=== PATIENT | female | born 1965 | race African-American/Black ===

== ENCOUNTER 2017-06-06 21:10 | Emergency (ER) | payer SELFPAY ==
[2017-06-06] MEDS ORDERED: Methocarbamol 1 GM in Sodium Chloride 0.9% 250 ML 250 ML IVPB SCH (22:30)
== END 2017-06-07 01:22 | disposition home or self-care (01) ==
LOC: ERS 21:10
DX: M54.40 Lumbago with sciatica, unspecified side (principal); E11.9 Type 2 diabetes mellitus without complications; E78.5 Hyperlipidemia, unspecified; F17.210 Nicotine dependence, cigarettes, uncomplicated; I10 Essential (primary) hypertension
CPT/HCPCS: 96365; J2800; J7050

== ENCOUNTER 2017-08-02 14:31 | Inpatient (IN) | payer SELFPAY ==
[2017-08-02] MEDS ORDERED: methylPREDNISolone Sod Succ/PF 125 MG/2 ML VIAL ONE (16:21)
[2017-08-02] MEDS ORDERED: Sterile Water 0 ML ONE (16:22)
[2017-08-02] MEDS ORDERED: Water For Inject, Bacteriostat 30 ML ONE (16:23)
[2017-08-02] MEDS ORDERED: Albuterol Sulfate 2.5 mg/3 ml Neb NEB PRN (17:54)
[2017-08-02] MEDS ORDERED: HYDROcodone/Acetaminophen 10/325 mg Tablet PO PRN (17:54)
[2017-08-02] MEDS ORDERED: Enoxaparin Sodium 40 MG/0.4 ML SYRINGE SC SCH (17:54)
[2017-08-02] MEDS ORDERED: Dextrose 5% in Water 1,000 ML IV PRN (17:54)
[2017-08-02] MEDS ORDERED: HYDROcodone/Acetaminophen 5/325 mg Tablet PO PRN (17:54)
[2017-08-02] MEDS ORDERED: Dextrose 50% Abboject 50 ML SYRINGE SLOW IVP PRN (17:54)
[2017-08-02] MEDS ORDERED: Ondansetron ODT 4 MG TAB PO PRN (17:54)
[2017-08-02] MEDS: Sodium Chloride 0.9% 1,000 ML IV SCH (19:32)
[2017-08-02] MEDS: Oseltamivir 75 MG CAP PO SCH (20:57)
[2017-08-02] MEDS: Acetaminophen 325 MG TAB PO PRN (20:58)
[2017-08-02] MEDS: Famotidine 20 MG TAB PO SCH (20:58)
[2017-08-02] MEDS: Nicotine 7 MG PATCH TD SCH ×2 (20:59→22:33)
[2017-08-02] MEDS: Insulin Regular 300 UNITS/3 ML VIAL SC PRN (22:27)
[2017-08-02 22:46] VITALS: BMI 45.9
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
[2017-08-03] MEDS: Sodium Chloride 0.9% 1,000 ML IV SCH ×2 (05:30→19:30)
[2017-08-03 05:49] LABS: #Lymphocytes 0.9 thou/uL (1.20-3.40); #Monocytes 0.2 thou/uL (0.11-0.59); %Basophils 0.3 % (0.0-1.0); %Eosinophils 0.2 % (0.0-10.0); %Lymphocytes 17.2 % (21.0-51.0); %Monocytes 4.6 % (0.0-10.0); Hematocrit 43.3 % (36.0-47.0); Mean Platelet Volume 8.2 fL (7.4-10.4); Red Blood Cell (RBC) Count 4.73 mill/uL (4.20-5.40); White Blood Cell (WBC) Count 5.1 thou/uL (4.8-10.8)
[2017-08-03 05:52] LABS: Hemoglobin A1c 10.4 % (4.0-6.0)
[2017-08-03 06:11] LABS: Anion Gap 14 mmol/L (10-20); BUN (Urea Nitrogen) 13 mg/dL (9.8-20.1); Calc. Creatinine Clearance 134 mL/min (70-130); Calcium 8.4 mg/dL (7.8-10.44); Carbon Dioxide 23 mmol/L (22-29); Chloride 104 mmol/L (98-107); Estimated GFR-MDRD 79
[2017-08-03] MEDS: Insulin Regular 300 UNITS/3 ML VIAL SC PRN ×4 (06:26→20:46)
[2017-08-03] MEDS ORDERED: Mag-Al 1200 mg/1200 mg/30 ML UDCUP PO PRN (08:05)
[2017-08-03] MEDS ORDERED: Chloraseptic Spray 180 ml Bottle PO PRN (08:05)
[2017-08-03] MEDS ORDERED: Senokot 8.6 MG TAB PO PRN (08:05)
[2017-08-03] MEDS ORDERED: Zolpidem Tartrate 5 MG TAB PO PRN (08:05)
[2017-08-03] MEDS ORDERED: Diabetic Tussin 200 MG/10 ML UDCUP PO PRN (08:05)
[2017-08-03] MEDS ORDERED: Artificial Tears 18 DROP/0.9 ML EA EYE PRN (08:05)
[2017-08-03] MEDS ORDERED: Benzonatate 100 MG CAP PO PRN (08:05)
[2017-08-03] MEDS ORDERED: hydrALAZINE 20 MG/ML VIAL SLOW IVP PRN (08:05)
[2017-08-03] MEDS ORDERED: Sodium Chloride 0.65% Nasal 44 ML BOT EA NARE PRN (08:05)
[2017-08-03] MEDS ORDERED: Ondansetron HCl/PF 4 MG/2 ML Vial IVP PRN (08:05)
[2017-08-03] MEDS ORDERED: Eucerin (Mineral Oil/Petrolatum,White) 30 gm Jar TOP PRN (08:05)
[2017-08-03] MEDS ORDERED: Loperamide HCl 2 MG CAP PO PRN (08:05)
[2017-08-03] MEDS ORDERED: Loratadine 10 MG TAB PO PRN (08:05)
[2017-08-03] MEDS ORDERED: Milk Of Magnesia 30 ML UDCUP PO PRN (08:05)
[2017-08-03] MEDS: Oseltamivir 75 MG CAP PO SCH ×2 (08:38→20:45)
[2017-08-03] MEDS: Famotidine 20 MG TAB PO SCH ×2 (08:38→20:45)
[2017-08-03] MEDS: Enoxaparin Sodium 40 MG/0.4 ML SYRINGE SC SCH (08:39)
[2017-08-03] MEDS ORDERED: FLU VACC QS2017-18 36 mo. & older 0.5 ML SYRINGE IM ONE (09:00)
--- NOTE | 2017-08-03 12:18 | PDOC.PN ---
- Subjective Encounter Start Date: 08/03/17 Encounter Start Time: 10:00 -: old records requested/rev still feels weak, ALVES, no fever Patient seen and examined. No overnight events - Objective Resuscitation Status: Resuscitation Status FULL:Full Resuscitation MAR Reviewed: Yes Vital Signs & Weight: Vital Signs (12 hours) Temp Pulse Resp BP BP Pulse Ox 08/03/17 11:06 80 16 08/03/17 08:00 97.8 F 86 22 H 08/03/17 07:43 97.8 F 86 22 H 155/92 H 95 08/03/17 06:53 97 08/03/17 06:52 86 16 08/03/17 05:44 97.8 F 82 20 106/73 95 08/03/17 02:53 93 L 08/03/17 00:44 97.9 F 74 20 116/68 93 L Weight Weight 259 lb 6.4 oz Result Diagrams: 08/03/17 05:35 08/03/17 05:35 Additional Labs: Accuchecks 08/02/17 21:56 POC Glucose 534 H Phys Exam - Physical Examination Constitutional: NAD HEENT: PERRLA, moist MMs, sclera anicteric Neck: no JVD, supple Respiratory: no rales, wheezing present Cardiovascular: RRR, no significant murmur, no rub Gastrointestinal: soft, non-tender, no distention, positive bowel sounds obesity+ Musculoskeletal: no edema, pulses present Neurological: non-focal, normal sensation, moves all 4 limbs Psychiatric: normal affect, A&O x 3 Skin: no rash, normal turgor Dx/Plan (1) COPD exacerbation Code(s): J44.1 - CHRONIC OBSTRUCTIVE PULMONARY DISEASE W (ACUTE) EXACERBATION Status: Acute (2) Influenza A Code(s): J10.1 - FLU DUE TO OTH IDENT INFLUENZA VIRUS W OTH RESP MANIFEST Status: Acute (3) Diabetes type 2, controlled Code(s): E11.9 - TYPE 2 DIABETES MELLITUS WITHOUT COMPLICATIONS Status: Chronic (4) Dyslipidemia Code(s): E78.5 - HYPERLIPIDEMIA, UNSPECIFIED Status: Chronic (5) Hypertension Code(s): I10 - ESSENTIAL (PRIMARY) HYPERTENSION Status: Chronic (6) Morbid obesity with BMI of 45.0-49.9, adult Code(s): E66.01 - MORBID (SEVERE) OBESITY DUE TO EXCESS CALORIES; Z68.42 - BODY MASS INDEX (BMI) 45.0-49.9, ADULT Status: Chronic (7) Tobacco abuse Code(s): Z72.0 - TOBACCO USE Status: Chronic - Plan cont current plan of care, continue antibiotics, respiratory therapy * continue tamiflu * continue respiratory therapy * add doxycycline * medication reviewed as below * symptomatic treatment. * continue IVF * continue IV solumedrol * counselled to avoid smoking Review of Systems - Review of Systems Constitutional: Weakness. negative: Fever, Chills, Sweats, Malaise, Other Respiratory: Cough, Shortness of Breath, SOB with Excertion. negative: Dry, Hemoptysis, Pleuritic Pain, Sputum, Wheezing Cardiovascular: negative: Chest Pain, Palpitations, Orthopnea, Paroxysmal Noc. Dyspnea, Edema, Light Headedness, Other Gastrointestinal: negative: Nausea, Vomiting, Abdominal Pain, Diarrhea, Constipation, Melena, Hematochezia, Other Genitourinary: negative: Dysuria, Frequency, Incontinence, Hematuria, Retention , Other Musculoskeletal: negative: Neck Pain, Shoulder Pain, Arm Pain, Back Pain, Hand Pain, Leg Pain, Foot Pain, Other Skin: negative: Rash, Lesions, Jackson, Bruising, Other - Medications/Allergies Allergies/Adverse Reactions: Allergies Allergy/AdvReac Type Severity Reaction Status Date / Time codeine Allergy Verified 08/02/17 21:54 Medications: Current Medications Acetaminophen (Tylenol) 650 mg PO Q4H PRN PRN Reason: Headache/Fever or Pain Last Admin: 08/02/17 20:58 Dose: 650 mg Hydrocodone Bitart/Acetaminophen ([employer] 10/325) 1 tab PO Q4H PRN PRN Reason: Severe Pain (7-10) Hydrocodone Bitart/Acetaminophen ([employer] 5/325) 1 tab PO Q4H PRN PRN Reason: Moderate Pain (4-6) Al Hydroxide/Mg Hydroxide (Maalox) 15 ml PO Q4H PRN PRN Reason: Heartburn or Indigestion Albuterol Sulfate (Ventolin) 2.5 mg NEB Q2H PRN PRN Reason: Wheezing Albuterol/Ipratropium (Duoneb) 3 ml NEB [id number] Last Admin: 08/03/17 11:06 Dose: 3 ml Artificial Tears (Tears Naturale) 0 drop EA EYE PRN PRN PRN Reason: Dry Eyes Benzonatate (Tessalon) 100 mg PO Q4H PRN PRN Reason: Cough Dextrose/Water (Dextrose 50%) 25 gm SLOW IVP PRN PRN PRN Reason: Hypoglycemia Enoxaparin Sodium (Lovenox) 40 mg SC 0900 [facility] Last Admin: 08/03/17 08:39 Dose: 40 mg Famotidine (Pepcid) 20 mg PO BID [facility] Last Admin: 08/03/17 08:38 Dose: 20 mg Glucagon (Glucagon) 1 mg IM PRN PRN PRN Reason: Hypoglycemia Guaifenesin (Robitussin Sf) 200 mg PO Q4H PRN PRN Reason: Cough Hydralazine HCl (Apresoline) 10 mg SLOW IVP Q4H PRN PRN Reason: Systolic BP > 180 Dextrose/Water (D5w) 1,000 mls @ 0 mls/hr IV .Q0M PRN; As Directed PRN Reason: Hypoglycemia Sodium Chloride (Normal Saline 0.9%) 1,000 mls @ 75 mls/hr IV .[id number] [facility] Last Admin: 08/03/17 05:30 Dose: 1,000 mls Insulin Human Regular (Humulin R) 0 units SC .MODERATE SLIDING SC PRN PRN Reason: Moderate Correctional Scale Last Admin: 08/03/17 06:26 Dose: 10 unit Insulin Human Regular (Humulin R) 0 units SC .BEDTIME SLIDING SC PRN; Protocol PRN Reason: BEDTIME SLIDING SCALE Last Admin: 08/02/17 22:27 Dose: 5 unit Loperamide HCl (Imodium) 2 mg PO PRN PRN PRN Reason: Diarrhea/Loose Stools Loratadine (Claritin) 10 mg PO DAILYPRN PRN PRN Reason: Sinus Symptoms Magnesium Hydroxide (Milk Of Magnesium) 30 ml PO DAILYPRN PRN PRN Reason: Constipation Methylprednisolone Sodium Succinate (Solu-Medrol) 40 mg IVP Q6HR [facility] Last Admin: 08/03/17 06:25 Dose: 40 mg Mineral Oil/White Petrolatum (Eucerin Cream) 0 gm TOP BIDPRN PRN PRN Reason: Dry Skin Nicotine (Nicoderm Patch) 7 mg TD Q24HR [facility] Last Admin: 08/02/17 22:33 Dose: 7 mg Ondansetron HCl (Zofran Odt) 4 mg PO Q6H PRN PRN Reason: Nausea/Vomiting Ondansetron HCl (Zofran) 4 mg IVP Q6H PRN PRN Reason: Nausea/Vomiting Oseltamivir Phosphate (Tamiflu) 75 mg PO BID [facility] Stop: 08/07/17 09:01 Last Admin: 08/03/17 08:38 Dose: 75 mg Phenol (Chloraseptic [place] 180 Ml Bot) 0 ml PO PRN PRN PRN Reason: Sore Throat Senna (Senokot) 2 tab PO HSPRN PRN PRN Reason: Constipation Sodium Chloride ([place] Nasal [place] 0.65%) 0 ml EA NARE QIDPRN PRN PRN Reason: Nasal Congestion Sodium Chloride (Flush - Normal Saline) 10 ml IVF Q12HR [facility] Last Admin: 08/03/17 09:20 Dose: Not Given Sodium Chloride (Flush - Normal Saline) 10 ml IVF PRN PRN PRN Reason: Saline Flush Zolpidem Tartrate (Ambien) 5 mg PO HSPRN PRN PRN Reason: Insomnia
[2017-08-03] MEDS: Nicotine 7 MG PATCH TD SCH (17:22)
[2017-08-03] MEDS: Doxycycline 100 MG CAP PO SCH (20:45)
[2017-08-04] MEDS: Insulin Regular 300 UNITS/3 ML VIAL SC PRN (06:23)
[2017-08-04] MEDS: Sodium Chloride 0.9% 1,000 ML IV SCH ×2 (06:24→23:33)
[2017-08-04] MEDS: Doxycycline 100 MG CAP PO SCH ×2 (08:38→21:21)
[2017-08-04] MEDS: Lisinopril 5 MG TAB PO SCH (08:38)
[2017-08-04] MEDS: Enoxaparin Sodium 40 MG/0.4 ML SYRINGE SC SCH (08:39)
[2017-08-04] MEDS: Oseltamivir 75 MG CAP PO SCH ×2 (08:40→21:21)
[2017-08-04] MEDS: Famotidine 20 MG TAB PO SCH ×2 (08:40→21:21)
[2017-08-04] MEDS: metFORMIN 500 MG TAB PO SCH ×2 (08:40→17:11)
[2017-08-04] MEDS: glyBURIDE 5 MG TAB PO SCH ×2 (08:41→17:11)
[2017-08-04] MEDS: Acetaminophen 325 MG TAB PO PRN (08:41)
--- NOTE | 2017-08-04 12:50 | PDOC.PN ---
- Subjective Encounter Start Date: 08/04/17 Encounter Start Time: 09:40 pt has cough, her blood sugar are not controlled - Objective Resuscitation Status: Resuscitation Status FULL:Full Resuscitation MAR Reviewed: Yes Vital Signs & Weight: Vital Signs (12 hours) Temp Pulse Resp BP BP Pulse Ox 08/04/17 10:28 86 12 08/04/17 08:38 94 139/78 08/04/17 07:03 92 16 94 L 08/04/17 04:12 98.1 F 94 20 139/78 92 L 08/04/17 02:27 88 16 95 Weight Weight 259 lb 6.4 oz I&O: 08/03/17 08/04/17 08/05/17 06:59 06:59 06:59 Intake Total 2100 Output Total 3400 Balance -1300 Result Diagrams: 08/03/17 05:35 08/03/17 05:35 Additional Labs: Accuchecks 08/04/17 08/03/17 08/03/17 11:09 20:25 16:33 POC Glucose 143 H 510 H 472 H 08/03/17 12:08 POC Glucose 394 H Phys Exam - Physical Examination Constitutional: NAD HEENT: PERRLA, moist MMs, sclera anicteric Neck: no JVD, supple Respiratory: no wheezing, no rales, no rhonchi Cardiovascular: RRR, no significant murmur, no rub Gastrointestinal: soft, non-tender, no distention, positive bowel sounds Musculoskeletal: no edema, pulses present Neurological: non-focal, normal sensation Lymphatic: no nodes Psychiatric: normal affect, A&O x 3 Skin: no rash, normal turgor Dx/Plan (1) COPD exacerbation Code(s): J44.1 - CHRONIC OBSTRUCTIVE PULMONARY DISEASE W (ACUTE) EXACERBATION Status: Acute (2) Influenza A Code(s): J10.1 - FLU DUE TO OTH IDENT INFLUENZA VIRUS W OTH RESP MANIFEST Status: Acute (3) Diabetes type 2, controlled Code(s): E11.9 - TYPE 2 DIABETES MELLITUS WITHOUT COMPLICATIONS Status: Chronic (4) Dyslipidemia Code(s): E78.5 - HYPERLIPIDEMIA, UNSPECIFIED Status: Chronic (5) Hypertension Code(s): I10 - ESSENTIAL (PRIMARY) HYPERTENSION Status: Chronic (6) Morbid obesity with BMI of 45.0-49.9, adult Code(s): E66.01 - MORBID (SEVERE) OBESITY DUE TO EXCESS CALORIES; Z68.42 - BODY MASS INDEX (BMI) 45.0-49.9, ADULT Status: Chronic (7) Tobacco abuse Code(s): Z72.0 - TOBACCO USE Status: Chronic - Plan cont current plan of care, continue antibiotics * add glyburide * DC solumedrol * continue doxycycline * control blood sugar * expecting discharge tomorrow * medication reviewed as below * symptomatic treatment. Review of Systems - Review of Systems ENT: negative: Ear Pain, Ear Discharge, Nose Pain, Nose Discharge, Nose Congestion, Mouth Pain, Mouth Swelling, Throat Pain, Throat Swelling, Other Respiratory: Cough, Shortness of Breath. negative: Dry, Hemoptysis, SOB with Excertion, Pleuritic Pain, Sputum, Wheezing Cardiovascular: negative: Chest Pain, Palpitations, Orthopnea, Paroxysmal Noc. Dyspnea, Edema, Light Headedness, Other Gastrointestinal: negative: Nausea, Vomiting, Abdominal Pain, Diarrhea, Constipation, Melena, Hematochezia, Other Genitourinary: negative: Dysuria, Frequency, Incontinence, Hematuria, Retention , Other Musculoskeletal: negative: Neck Pain, Shoulder Pain, Arm Pain, Back Pain, Hand Pain, Leg Pain, Foot Pain, Other Skin: negative: Rash, Lesions, Jackson, Bruising, Other - Medications/Allergies Allergies/Adverse Reactions: Allergies Allergy/AdvReac Type Severity Reaction Status Date / Time codeine Allergy Verified 08/02/17 21:54 Medications: Current Medications Acetaminophen (Tylenol) 650 mg PO Q4H PRN PRN Reason: Headache/Fever or Pain Last Admin: 08/04/17 08:41 Dose: 650 mg Hydrocodone Bitart/Acetaminophen ([place] 10/325) 1 tab PO Q4H PRN PRN Reason: Severe Pain (7-10) Hydrocodone Bitart/Acetaminophen ([place] 5/325) 1 tab PO Q4H PRN PRN Reason: Moderate Pain (4-6) Al Hydroxide/Mg Hydroxide (Maalox) 15 ml PO Q4H PRN PRN Reason: Heartburn or Indigestion Albuterol Sulfate (Ventolin) 2.5 mg NEB Q2H PRN PRN Reason: Wheezing Albuterol/Ipratropium (Duoneb) 3 ml NEB [id number] Last Admin: 08/04/17 10:28 Dose: 3 ml Artificial Tears (Tears Naturale) 0 drop EA EYE PRN PRN PRN Reason: Dry Eyes Benzonatate (Tessalon) 100 mg PO Q4H PRN PRN Reason: Cough Dextrose/Water (Dextrose 50%) 25 gm SLOW IVP PRN PRN PRN Reason: Hypoglycemia Doxycycline Hyclate (Vibramycin) 100 mg PO BID [facility] Last Admin: 08/04/17 08:38 Dose: 100 mg Enoxaparin Sodium (Lovenox) 40 mg SC 0900 [facility] Last Admin: 08/04/17 08:39 Dose: 40 mg Famotidine (Pepcid) 20 mg PO BID [facility] Last Admin: 08/04/17 08:40 Dose: 20 mg Glucagon (Glucagon) 1 mg IM PRN PRN PRN Reason: Hypoglycemia Glyburide (Diabeta) 5 mg PO BID[facility] Last Admin: 08/04/17 08:41 Dose: 5 mg Guaifenesin (Robitussin Sf) 200 mg PO Q4H PRN PRN Reason: Cough Hydralazine HCl (Apresoline) 10 mg SLOW IVP Q4H PRN PRN Reason: Systolic BP > 180 Dextrose/Water (D5w) 1,000 mls @ 0 mls/hr IV .Q0M PRN; As Directed PRN Reason: Hypoglycemia Sodium Chloride (Normal Saline 0.9%) 1,000 mls @ 75 mls/hr IV .[id number] [facility] Last Admin: 08/04/17 06:24 Dose: 1,000 mls Insulin Human Regular (Humulin R) 0 units SC .MODERATE SLIDING SC PRN PRN Reason: Moderate Correctional Scale Last Admin: 08/04/17 06:23 Dose: 8 unit Insulin Human Regular (Humulin R) 0 units SC .BEDTIME SLIDING SC PRN; Protocol PRN Reason: BEDTIME SLIDING SCALE Last Admin: 08/03/17 20:46 Dose: 5 unit Lisinopril (Zestril) 5 mg PO DAILY [facility] Last Admin: 08/04/17 08:38 Dose: 5 mg Loperamide HCl (Imodium) 2 mg PO PRN PRN PRN Reason: Diarrhea/Loose Stools Loratadine (Claritin) 10 mg PO DAILYPRN PRN PRN Reason: Sinus Symptoms Magnesium Hydroxide (Milk Of Magnesium) 30 ml PO DAILYPRN PRN PRN Reason: Constipation Metformin HCl (Glucophage) 1,000 mg PO BID-[facility] Last Admin: 08/04/17 08:40 Dose: 1,000 mg Mineral Oil/White Petrolatum (Eucerin Cream) 0 gm TOP BIDPRN PRN PRN Reason: Dry Skin Nicotine (Nicoderm Patch) 7 mg TD Q24HR [facility] Last Admin: 08/03/17 17:22 Dose: 7 mg Ondansetron HCl (Zofran Odt) 4 mg PO Q6H PRN PRN Reason: Nausea/Vomiting Ondansetron HCl (Zofran) 4 mg IVP Q6H PRN PRN Reason: Nausea/Vomiting Oseltamivir Phosphate (Tamiflu) 75 mg PO BID [facility] Stop: 08/07/17 09:01 Last Admin: 08/04/17 08:40 Dose: 75 mg Phenol (Chloraseptic [place] 180 Ml Bot) 0 ml PO PRN PRN PRN Reason: Sore Throat Senna (Senokot) 2 tab PO HSPRN PRN PRN Reason: Constipation Sodium Chloride ([place] Nasal [place] 0.65%) 0 ml EA NARE QIDPRN PRN PRN Reason: Nasal Congestion Sodium Chloride (Flush - Normal Saline) 10 ml IVF Q12HR [facility] Last Admin: 08/04/17 08:42 Dose: Not Given Sodium Chloride (Flush - Normal Saline) 10 ml IVF PRN PRN PRN Reason: Saline Flush Zolpidem Tartrate (Ambien) 5 mg PO HSPRN PRN PRN Reason: Insomnia
[2017-08-04] MEDS: Nicotine 7 MG PATCH TD SCH (18:06)
[2017-08-05] MEDS: Lisinopril 5 MG TAB PO SCH (08:11)
[2017-08-05] MEDS: Famotidine 20 MG TAB PO SCH (08:11)
[2017-08-05] MEDS: metFORMIN 500 MG TAB PO SCH (08:12)
[2017-08-05] MEDS: Oseltamivir 75 MG CAP PO SCH (08:12)
[2017-08-05] MEDS: glyBURIDE 5 MG TAB PO SCH (08:13)
[2017-08-05] MEDS: Doxycycline 100 MG CAP PO SCH (08:13)
[2017-08-05 08:14] VITALS: BP 120/66
[2017-08-05] MEDS: Enoxaparin Sodium 40 MG/0.4 ML SYRINGE SC SCH (08:14)
[2017-08-05 08:26] VITALS: TEMP 97.4
[2017-08-05] MEDS ORDERED: predniSONE 20 MG TAB PO SCH (09:15)
[2017-08-05] MEDS: Sodium Chloride 0.9% 1,000 ML IV SCH (11:40)
--- NOTE | 2017-08-05 14:27 | DIS ---
DATE OF ADMISSION: 08/02/2017 DATE OF DISCHARGE: 08/05/2017 PRIMARY CARE PHYSICIAN: Dr. Latricia Guajardo. DISCHARGE DISPOSITION: Home. PRIMARY DISCHARGE DIAGNOSES: 1. Acute influenza A. 2. Chronic obstructive pulmonary disease/asthma exacerbation. 3. Labile diabetes control. SECONDARY DISCHARGE DIAGNOSES: 1. Morbid obesity with BMI of 46. 2. Tobacco abuse disorder. 3. Hypertension. 4. Dyslipidemia. PRIMARY PROCEDURE/OPERATION: None. RADIOLOGICAL INVESTIGATION: Chest x-ray on admission showed no acute cardiopulmonary process. SIGNIFICANT LABORATORY DATA: WBC 5.1, hemoglobin 13.6, platelets 244. Sodium 137, potassium 4.0, BU N 13, creatinine 0.90, calcium 8.4, hemoglobin A1c 10.4. Blood culture negative, influenza A positiv e. DISCHARGE MEDICATIONS: Doxycycline 100 mg p.o. b.i.d. for 7 days, Pepcid 20 mg p.o. b.i.d. for one m onth, glyburide 5 mg p.o. b.i.d., lisinopril 5 mg p.o. daily, metformin 1000 mg p.o. b.i.d., Dulera 2 puffs inhalation b.i.d., prednisone 20 mg p.o. b.i.d. for 5 days, Ventolin HFA 2 puffs q.6 hourly p. r.n. The patient is advised to use [id number] Mucinex and Robitussin cough syrup. CONTRAINDICATIONS: None. CODE STATUS: FULL CODE. INPATIENT CONSULTANTS: None. ALLERGIES: CODEINE. DISCHARGE PLAN: Post hospital, the patient is discharged with the above mentioned medications and e will schedule appointment with primary care physician in 1 week. HOSPITAL COURSE: A 51-year-old female with above-mentioned medical problem who was admitted by Dr. Annamaria Arredondo. Please see his H&P for further details. The patient was admitted on 08/02/2017. The pa tient was having flu-like illness with generalized body ache and headache. She was having fever as w ell as she was having increasing shortness of breath, cough productive of yellowish white sputum and she was significantly weak. The patient had a flu testing done in the emergency room and it was posi tive for influenza A. Patient was also having acute bronchitis/COPD exacerbation/asthma exacerbation . The patient has ongoing tobacco abuse disorder and we suspected predominantly chronic obstructive pulmonary disease exacerbation. Patient was admitted to medical floor and she was treated with IV st eroids, DuoNeb therapy and Dulera. With this therapy, the patient's diabetes was significantly got w orse and that is why we discontinued IV Solu-Medrol and we changed to inhaler therapy only. We added glyburide and metformin for her diabetes for better control. After that, her diabetes was well con trolled. We also continued empiric antibiotic therapy with doxycycline while in hospital. The patient education given about to avoid smoking as well as diet and diabetes control was discussed with her in detail on the day of discharge. PHYSICAL EXAMINAITON: The patient was seen and examined at bedside today. VITAL SIGNS: Currently, temperature 97.4, pulse 78, respiratory rate 18, blood pressure 120/66, weig ht 259 pounds. GENERAL: The patient is currently alert, awake, in no acute distress. HEAD: Normocephalic, atraumatic. LUNGS: Clear to auscultation without any rhonchi or rales. CARDIAC: S1, S2 regular without any murmur. ABDOMEN: Soft and benign without any tenderness. EXTREMITIES: No edema. NEUROLOGIC: Nonfocal examination. Overall, the patient is medically stable for discharge. Total time spent on discharge day 31 minutes.
== END 2017-08-05 12:17 | disposition home or self-care (01) | DRG 190 ==
LOC: ERS 14:31 → T4-A 17:52
PROVIDERS: ADMIT Internal Medicine Infectious Disease; ATTEND Internal Medicine Infectious Disease
DX: J44.0 Chronic obstructive pulmonary disease with (acute) lower respiratory infection (principal); J10.00 Influenza due to other identified influenza virus with unspecified type of pneumonia; Z68.42 Body mass index [BMI] 45.0-49.9, adult; J45.901 Unspecified asthma with (acute) exacerbation; E66.01 Morbid (severe) obesity due to excess calories; J44.1 Chronic obstructive pulmonary disease with (acute) exacerbation; J20.9 Acute bronchitis, unspecified; F17.210 Nicotine dependence, cigarettes, uncomplicated; I10 Essential (primary) hypertension; E78.5 Hyperlipidemia, unspecified
CPT/HCPCS: 36415; 36416; 80048; 83036; 85025; 90471; 90682; 90732; 94640; 96374; A4216; G0008; G0009; J1650; J1815; J2920; J2930; J7506; J7620; Q2036

== ENCOUNTER 2019-04-01 21:17 | Inpatient (IN) | payer SELFPAY ==
[2019-04-01 22:22] LABS: Troponin I 0.402 ng/mL (< 0.028)
[2019-04-01] MEDS ORDERED: Ondansetron PF 4 MG/2 ML Vial IVP PRN (22:58)
[2019-04-01] MEDS ORDERED: Ondansetron ODT 4 MG TAB SL PRN (22:58)
[2019-04-01 23:31] VITALS: BMI 48.6
[2019-04-02] MEDS: Sodium Chloride 0.9% 1,000 ML IV SCH ×2 (00:05→07:55)
[2019-04-02] MEDS ORDERED: PROVENTIL INHALER 6.7 G (200 INHALATIONS) INH PRN (02:27)
[2019-04-02] MEDS ORDERED: Nitroglycerin 0.4 MG TAB (25 Tab Bottle) SL PRN (02:27)
[2019-04-02] MEDS ORDERED: Acetaminophen 325 MG TAB PO PRN (02:29)
[2019-04-02] MEDS ORDERED: Dextrose 50% Abboject 50 ML SYRINGE SLOW IVP PRN (02:29)
[2019-04-02] MEDS ORDERED: HumaLOG 300 UNITS/3 ML VIAL SC PRN (02:29)
[2019-04-02] MEDS ORDERED: Acetaminophen 650 MG Suppository PR PRN (02:29)
[2019-04-02] MEDS ORDERED: Dextrose 5% in Water 1,000 ML IV PRN (02:29)
--- NOTE | 2019-04-02 03:22 | HP ---
PRIMARY CARE PHYSICIAN: Latricia Guajardo PA-C CODE STATUS: Full code. TIME OF EVALUATION: 1:10 a.m. CHIEF COMPLAINT: Chest pain. HISTORY OF PRESENT ILLNESS: This is a 53-year-old female patient with past medical history of obesity, diabetes, hyperlipidemia, hypertension, came to the hospital after having severe sudden onset chest pain with no clear triggers. No alleviating factors. The symptom started around 6 p.m. The patient has associated diaphoresis and dyspnea on exertion. The pain was described as a pressure-like. REVIEW OF SYSTEMS: CONSTITUTIONAL: No fever, chills, or generalized weakness. RESPIRATORY: No cough, sputum production, or shortness of breath. CARDIOVASCULAR: The patient has chest pain. No palpitation. GASTROINTESTINAL: No nausea, vomiting, diarrhea, or abdominal pain. BRAZING FURNACE FEEDER: No dizziness, headache, or feeling lightheaded. GENITOURINARY: No burning on urination. EXTREMITIES: No leg swelling. The patient has reported diaphoresis. All other systems were reviewed and negative except for the findings mentioned above. PAST MEDICAL HISTORY: As mentioned in the HPI. PAST SURGICAL HISTORY: , right leg surgery. PSYCHIATRIC HISTORY: No previous psychiatric history. No previous inpatient psychiatric admissions. SOCIAL HISTORY: Lives at home with family. No alcohol. No drug use. Smokes cigarettes 1 pack per day. KNOWN ALLERGIES: Codeine phosphate. REPORTED MEDICATIONS: 1. Levemir. 2. Metformin. 3. Lisinopril. 4. Albuterol sulfate. PHYSICAL EXAMINATION: VITAL SIGNS: On presentation, blood pressure 143/98 with heart rate 86, respiratory rate was 18, temperature 98.2, oxygen saturation 96% on room air. GENERAL APPEARANCE: The patient is alert, oriented, in no acute distress. HEENT: Eyes, normal conjunctivae. Moist oral mucosa. Anicteric. No JVD. RESPIRATORY: Bilateral air entry. No rales. No wheezes. Symmetric expansion. CARDIOVASCULAR: Normal rate. Regular rhythm. No murmurs. No gallop. No edema. ABDOMEN: Soft. Normal bowel sounds. MUSCULOSKELETAL: Baseline range of motion and strength. SKIN: Warm, intact. No pallor. No rash. No redness. Capillary refill seems to be intact. NEUROLOGIC: No evidence of any new focal weakness. Cranial nerves seems to be intact. PSYCHIATRIC: The patient is in good mood. No anxiety. Optimal judgment. IMAGING: EKG was reviewed and showed normal sinus rhythm with a rate of 85, T-wave inversion in lead I, V5, V6. CT 144, QT corrected 435, QRS duration 78. Chest x-ray was reviewed. The patient has no acute infiltrate identified. LABORATORY DATA: Reviewed. The patient has white count 9.7, hemoglobin 14.1, MCV 91, platelet count 264. Chemistry; sodium 139, potassium 4.1, chloride 101, carbon dioxide 28, anion gap 14, BUN 11, creatinine 0.8, GFR 82, glucose 139, lactic acid 1.3, alkaline phosphatase 87, troponin 0.45, next one 0.40. Serum total protein 7.9, albumin 3.8, globulin 4.1, albumin to globulin ratio 0.9, lipase 27. ASSESSMENT AND PLAN: The patient will be placed in the hospital with following medical problems: 1. Bax-MN-cpmlqldri myocardial infarction, type 1. The patient received aspirin, Lopressor, Lovenox, losartan, lisinopril, simvastatin. Cardiology evaluation likely to go for cardiac cath in the morning. 2. Uncontrolled diabetes, blood sugar 139. We will place the patient on sliding scale for optimal control. For now the patient is n.p.o. for possible procedure. 3. Hyperlipidemia. Low-cholesterol diet is advised. The patient has been started on statins. 4. Uncontrolled hypertension, systolic blood pressure 143 on presentation. Reconcile home medications. We will adjust treatment as needed. 5. Obesity. The patient is now advised to lose weight. 6. Deep venous thrombosis prophylaxis. Job ID: [id number]
[2019-04-02 04:47] LABS: #Basophils 0.1 thou/uL (0.0-0.2); #Eosinphils 0.1 thou/uL (0.0-0.7); #Lymphocytes 3.4 thou/uL (1.20-3.40); #Monocytes 0.8 thou/uL (0.11-0.59); %Basophils 0.7 % (0.0-1.0); %Eosinophils 1.1 % (0.0-10.0); %Neutrophils 47.1 % (42.0-75.0); Hemoglobin 13.2 g/dL (12.0-16.0); Mean Corpuscular Hemoglobin 29.8 pg (27.0-31.0); Mean Corpuscular Volume 90.2 fL (78.0-98.0); Mean Platelet Volume 8.5 fL (7.4-10.4); Platelet Count 244 thou/uL (130-400); RBC Distribution Width 12.4 % (11.5-14.5); Red Blood Cell (RBC) Count 4.44 mill/uL (4.20-5.40); White Blood Cell (WBC) Count 8.4 thou/uL (4.8-10.8)
[2019-04-02 05:05] LABS: Anion Gap 9 mmol/L (10-20); BUN (Urea Nitrogen) 11 mg/dL (9.8-20.1); Calc. Creatinine Clearance 158 mL/min (70-130); Calcium 9.2 mg/dL (7.8-10.44); Carbon Dioxide 27 mmol/L (22-29); Chloride 104 mmol/L (98-107); Estimated GFR-MDRD Greater than 90; Glucose 190 mg/dL (70-105); Sodium 136 mmol/L (136-145)
[2019-04-02] MEDS: Mometasone/Formoterol 120 PUFF INHALER INH SCH ×2 (06:57→19:48)
[2019-04-02] MEDS: Lisinopril 10 MG TAB PO SCH (07:56)
[2019-04-02] MEDS ORDERED: Aspirin Chewable 81 MG TAB PO SCH (09:00)
[2019-04-02] MEDS ORDERED: Communication Order-Pharmacy FS SCH (09:30)
[2019-04-02] MEDS ORDERED: Sodium Chloride 0.9% 1,000 ML IV SCH ×2 (09:30→14:45)
--- NOTE | 2019-04-02 10:09 | CON ---
DATE OF CONSULTATION: REASON FOR CONSULTATION: Type 1 NC. HISTORY OF PRESENT ILLNESS: Ms. Urbano is a very pleasant 53-year-old woman with history of tobacco abuse, diabetes, and hypertension, who recently presented with acute onset chest pain. It is in the mid lower chest, radiation to her back. It lasted 20 to 30 minutes. No ameliorating, exacerbating, or precipitating factors present. She presented to the emergency room where she was found to have elevated troponins, subsequently admitted. She is currently pain-free. PAST MEDICAL HISTORY: As above including obesity. PAST SURGICAL HISTORY: and left leg surgery. HOME MEDICATIONS: Include: 1. Levemir. 2. Metformin. 3. Lisinopril. 4. Albuterol. ALLERGIES: CODEINE. SOCIAL HISTORY: One pack per day of smoking. No alcohol or drug use. REVIEW OF SYSTEMS: A 10-point review of systems is reviewed and as above, otherwise negative. PHYSICAL EXAMINATION: GENERAL: Patient is a pleasant 53-year-old, who is in no acute distress. The patient appears their stated age. She is morbidly obese with a BMI of 48. VITAL SIGNS: Blood pressure 127/70, pulse 85, and temperature afebrile. NEUROLOGIC: The patient is alert and oriented x3 with no focal neurologic deficits. HEENT: Sclerae without icterus. Mouth has moist mucous membranes with normal pallor. NECK: No JVD. Carotid upstroke brisk. No bruits bilaterally. LUNGS: Clear to auscultation with unlabored respirations. BACK: No scoliosis or kyphosis. CARDIAC: Regular rate and rhythm with normal S1 and S2. No S3 or S4 noted. No significant rubs, murmurs, thrills, or gallops noted throughout the precordium. PMI is not displaced. There is no parasternal heave. ABDOMEN: Soft, nontender, nondistended. No peritoneal signs present. No hepatosplenomegaly. No abnormal striae. EXTREMITIES: 2+ femoral and 2+ dorsalis pedis pulses. No cyanosis, clubbing, or edema. SKIN: No gross abnormalities. PERTINENT LABORATORY DATA: Hemoglobin 13.2. Creatinine 0.45. EKG shows normal sinus rhythm with inverted T-waves noted inferiorly. IMPRESSION: 1. Type 1 myocardial infarction. 2. Diabetes mellitus. 3. Tobacco abuse. RECOMMENDATIONS: The patient's HEART score and HAROON score felt to be elevated. She would benefit from a more aggressive approach given her risk factors and elevated troponin. We therefore recommend coronary angiography and possible PCI. Discussed the procedure in full detail with Ms. Urbano. The risks of the procedure were also discussed. The risks of the procedure include but are not limited to the following: , stroke, NC, need for emergency surgery, loss of limb, bleeding, and infection, as well as a reaction to the dye causing kidney failure and needing long-term dialysis. I also discussed the risks of PCI to include all of the above including coronary dissection and perforation in addition to acute stent thrombosis and restenosis. All questions about the procedure were answered. Given the above, the patient agreed to proceed with coronary angiography and possible PCI. All questions were answered. I also discussed drug-coated versus nondrug-coated stent placement. She states she can be compliant. No bleeding issues. No surgeries planned and no back injections. Given the above, she would like to proceed with drug-coated stent. Further recommendations pending the above. Job ID: [id number]
[2019-04-02] MEDS ORDERED: Lidocaine 1% (PF) 30 ML VIAL ONE (12:22)
[2019-04-02] MEDS ORDERED: Nitroglycerin 100MG/250ML BOT 250 ML ONE (13:19)
[2019-04-02] MEDS ORDERED: Heparin 10,000 UNITS/1 ML VIAL ONE (13:19)
[2019-04-02] MEDS ORDERED: Fentanyl 100 MCG/2 ML VIAL ONE (13:19)
[2019-04-02] MEDS ORDERED: Verapamil 5 MG/2 ML VIAL ONE (13:19)
[2019-04-02] MEDS ORDERED: Midazolam HCl 2 mg/2 ml Vial ONE (13:20)
[2019-04-02] MEDS ORDERED: Clopidogrel Bisulfate 300 MG TAB ONE ×2 (13:58→14:13)
[2019-04-02] MEDS ORDERED: Mag-Al 1200 mg/1200 mg/30 ML UDCUP PO PRN (14:31)
[2019-04-02] MEDS ORDERED: Adenosine 6 MG/2 ML VIAL ONE (14:31)
[2019-04-02] MEDS ORDERED: Milk Of Magnesia 30 ML UDCUP PO PRN (14:31)
--- NOTE | 2019-04-02 18:03 | PDOC.HOSPP ---
- Subjective Subjective: Doing well. No complaints. Spoke with Dr. Vivas earlier. Cath planned for today. Nervous, but mostly hungry. - Objective Vital Signs & Weight: Vital Signs (12 hours) Temp Pulse Resp BP BP Pulse Ox 04/02/19 14:45 68 16 118/57 L 118/57 L 94 L 04/02/19 11:00 97.8 F 73 16 162/66 H 100 04/02/19 07:00 97.8 F 75 18 127/70 96 04/02/19 06:57 77 16 97 Weight Admit Weight 275 lb Weight 275 lb I&O: 04/01/19 04/02/19 04/03/19 06:59 06:59 06:59 Intake Total 922 Output Total 350 Balance 572 Result Diagrams: 04/02/19 04:28 04/02/19 04:28 Additional Labs: Accuchecks 04/02/19 04/02/19 04/02/19 17:04 11:27 05:24 POC Glucose 163 H 122 H 160 H 04/01/19 23:20 POC Glucose 148 H ROS - Review of Systems All systems: All other ROS were reviewed and found negative. - Medication Medications: Active Medications Generic Name Dose Route Start Last Admin Trade Name Freq PRN Reason Stop Dose Admin Sodium Chloride 1,000 mls @ 100 mls/hr 04/02/19 14:45 04/02/19 15:59 Normal Saline 0.9% IV 04/02/19 22:46 Not Given .Q10H JOSE Lisinopril 10 mg 04/02/19 09:00 04/02/19 07:56 Zestril PO 10 mg DAILY JOSE Administration Mometasone Furoate/Formoterol Fumar 2 puff 04/02/19 06:30 04/02/19 06:57 Dulera 200 Mcg/5 Mcg Inhaler INH 2 puff BID-RT JOSE Administration - Exam NAD (Obese.) Heart: RRR, no murmur, no gallops, no rubs, normal peripheral pulses Respiratory: CTAB, no wheezes, no rales, no ronchi, normal chest expansion, no tachypnea, normal percussion Gastrointestinal: soft, non-tender, non-distended, normal bowel sounds, no palpable masses, no hepatomegaly, no splenomegaly, no bruit Extremities: no cyanosis, no clubbing, no edema Skin: normal turgor, no lesions, no rashes Musculoskeletal: normal tone, normal strength, no muscle wasting Psychiatric: normal affect, normal behavior, A&O x 3 Hosp A/P (1) NSTEMI (non-ST elevated myocardial infarction) Code(s): I21.4 - NON-ST ELEVATION (NSTEMI) MYOCARDIAL INFARCTION Status: Acute (2) Diabetes type 2, controlled Code(s): E11.9 - TYPE 2 DIABETES MELLITUS WITHOUT COMPLICATIONS Status: Chronic (3) Dyslipidemia Code(s): E78.5 - HYPERLIPIDEMIA, UNSPECIFIED Status: Chronic (4) Hypertension Code(s): I10 - ESSENTIAL (PRIMARY) HYPERTENSION Status: Chronic (5) Morbid obesity with BMI of 45.0-49.9, adult Code(s): E66.01 - MORBID (SEVERE) OBESITY DUE TO EXCESS CALORIES; Z68.42 - BODY MASS INDEX (BMI) 45.0-49.9, ADULT Status: Chronic (6) Tobacco abuse Code(s): Z72.0 - TOBACCO USE Status: Chronic (7) Hyperkalemia Code(s): E87.5 - HYPERKALEMIA Status: Acute - Plan [facility]earth cath today. Potassium addressed. Plavix, ASA, statin.
[2019-04-02] MEDS ORDERED: Atorvastatin Calcium 20 MG TAB PO SCH (21:00)
[2019-04-02] MEDS ORDERED: Atorvastatin Calcium 40 MG TAB PO SCH (21:00)
[2019-04-03 05:29] LABS: #Eosinphils 0.1 thou/uL (0.0-0.7); #Lymphocytes 2.5 thou/uL (1.20-3.40); #Monocytes 0.8 thou/uL (0.11-0.59); #Neutrophils 3.9 thou/uL (1.40-6.50); %Basophils 0.5 % (0.0-1.0); %Eosinophils 1.7 % (0.0-10.0); %Lymphocytes 34.7 % (21.0-51.0); %Monocytes 10.5 % (0.0-10.0); %Neutrophils 52.7 % (42.0-75.0); Hemoglobin 13.1 g/dL (12.0-16.0); Mean Corpuscular HGB CONC 32.9 g/dL (32.0-36.0); Mean Corpuscular Hemoglobin 29.6 pg (27.0-31.0); Mean Corpuscular Volume 89.9 fL (78.0-98.0); Mean Platelet Volume 8.5 fL (7.4-10.4); Platelet Count 253 thou/uL (130-400); RBC Distribution Width 12.2 % (11.5-14.5); Red Blood Cell (RBC) Count 4.42 mill/uL (4.20-5.40); White Blood Cell (WBC) Count 7.3 thou/uL (4.8-10.8)
[2019-04-03 05:53] LABS: ALT (SGPT) 10 U/L (8-55); AST (SGOT) 13 U/L (5-34); Albumin 3.3 g/dL (3.5-5.0); Alkaline Phosphatase 67 U/L (40-150); Anion Gap 11 mmol/L (10-20); BUN (Urea Nitrogen) 8 mg/dL (9.8-20.1); Bilirubin, Total 0.4 mg/dL (0.2-1.2); Calc. Creatinine Clearance 163 mL/min (70-130); Calcium 8.8 mg/dL (7.8-10.44); Carbon Dioxide 25 mmol/L (22-29); Chloride 104 mmol/L (98-107); Estimated GFR-MDRD Greater than 90; Globulin 3.7 g/dL (2.4-3.5); Glucose 128 mg/dL (70-105); Potassium 4.2 mmol/L (3.5-5.1); Sodium 136 mmol/L (136-145)
[2019-04-03] MEDS: Mometasone/Formoterol 120 PUFF INHALER INH SCH (07:32)
[2019-04-03] MEDS ORDERED: Aspirin Chewable 81 MG TAB PO SCH (09:00)
[2019-04-03] MEDS ORDERED: Clopidogrel Bisulfate 75 MG TAB PO SCH (09:00)
[2019-04-03] MEDS: Lisinopril 10 MG TAB PO SCH (09:10)
[2019-04-03 10:35] LABS: Cardiac Risk 6.3 (Less than 4.5)
--- NOTE | 2019-04-03 11:51 | PDOC.EVN ---
Event Note - Event Note Event Note: Disharge summary done. dic # [id number]
--- NOTE | 2019-04-03 12:38 | DIS ---
DATE OF ADMISSION: 04/01/2019 DATE OF DISCHARGE: 04/03/2019 DISCHARGE DIAGNOSES: 1. Acute pgd-UB-qmgxraqss myocardial infarction. 2. Chest pain. 3. Type 2 diabetes mellitus. 4. Hyperlipidemia. 5. Hypertension. 6. Chronic obstructive pulmonary disease. 7. Morbid obesity. CONSULTS: Cardiology. PROCEDURE PERFORMED: Catheterization with stent placement to LAD. HOSPITAL COURSE: A 53-year-old obese female with known history of COPD, hypertension, diabetes, and hyperlipidemia, who presented with acute onset of chest pain associated with diaphoresis and shortness of breath. The patient was found to have troponin elevation. Cardiology consult was obtained, and the patient subsequently had cardiac catheterization with stent placement to LAD. Post-cardiac cath recovery was uneventful, and the patient remained chest-pain free and was subsequently discharged home. The patient was on metformin prior to discharge and was instructed to restart metformin only after 48 hours, which concerned with April 05, 2019. The patient was also instructed to be on Plavix and aspirin. PHYSICAL EXAMINATION: VITAL SIGNS: Temperature 97.7, pulse 70, respiratory rate 18, SpO2 of 100 on room air, blood pressure is 156/94. GENERAL: Morbidly obese female, in no distress. Afebrile. Anicteric. Acyanotic. HEENT: Normocephalic and atraumatic. Pupils are reacting to light. Oral mucosa is moist. CARDIOVASCULAR: Regular rhythm and rate. Normal heart sounds, one and two. RESPIRATORY: Fair air entry bilaterally with few transmitted sounds. No crackle or rhonchi or use of accessory muscles was appreciated. GI: Obese, soft, nontender, nondistended with normal bowel sounds. EXTREMITIES: Grossly normal looking atraumatic with no edema, erythema, or cyanosis. NEUROLOGIC: Conscious, alert, oriented x3 with appropriate mental status. Cranial nerves 2 through 12 are grossly intact. DISCHARGE DISPOSITION: Home. DISCHARGE CONDITION: Improved. FOLLOWUP: To follow with PCP in 3 to 5 days and with avionics electronics technician in 2 to 3 weeks. DISCHARGE MEDICATIONS: 1. Levemir 20 units daily. 2. Lisinopril 10 mg p.o. daily. 3. Nitroglycerin 0.4 mg sublingual q.5 minutes p.r.n. for chest pain. 4. Ventolin inhaler two puffs q.6h p.r.n. 5. Aspirin 81 mg p.o. daily. 6. Lipitor 40 mg p.o. daily at bedtime. 7. Plavix 75 mg p.o. daily. 8. Glyburide 5 mg p.o. b.i.d. with meals. 9. Metformin 1000 mg p.o. b.i.d. 10. Mometasone-formoterol (Dulera) two puffs inhalation b.i.d. TIME SPENT: This discharge took more than 35 minute. Job ID: [id number]
[2019-04-03 15:51] VITALS: BP 150/68; TEMP 98.9
--- NOTE | 2019-04-03 16:34 | PRG ---
DATE OF SERVICE: SUBJECTIVE: Ms. Urbano is doing well. No current complaints. PHYSICAL EXAMINATION: GENERAL: Patient is a pleasant female, who is in no acute distress. The patient appears their stated age. VITAL SIGNS: Blood pressure 150/68, pulse 75, and temperature 98.9. NEUROLOGIC: The patient is alert and oriented x3 with no focal neurologic deficits. HEENT: Sclerae without icterus. Mouth has moist mucous membranes with normal pallor. NECK: No JVD. Carotid upstroke brisk. No bruits bilaterally. LUNGS: Clear to auscultation with unlabored respirations. BACK: No scoliosis or kyphosis. CARDIAC: Regular rate and rhythm with normal S1 and S2. No S3 or S4 noted. No significant rubs, murmurs, thrills, or gallops noted throughout the precordium. PMI is not displaced. There is no parasternal heave. ABDOMEN: Soft, nontender, nondistended. No peritoneal signs present. No hepatosplenomegaly. No abnormal striae. EXTREMITIES: 2+ femoral and 2+ dorsalis pedis pulses. No cyanosis, clubbing, or edema. SKIN: No gross abnormalities. PERTINENT LABORATORY DATA: Hemoglobin 13.1. IMPRESSION: 1. Type 1 myocardial infarction. 2. Diabetes mellitus. RECOMMENDATIONS: 1. Continue aspirin and Plavix. 2. Hold Coreg due to bradycardia. 3. Continue atorvastatin and lisinopril. 4. Okay from my standpoint to discharge home. We will follow up in the next 2 to 3 weeks. Job ID: [id number]
== END 2019-04-03 17:10 | disposition home or self-care (01) | DRG 249 ==
LOC: ERS 21:17 → 2NO 22:00
PROVIDERS: ADMIT Hospitalist; ATTEND Hospitalist
PROC: 02703DZ Dilation of Coronary Artery, One Artery with Intraluminal Device, Percutaneous Approach (ICD-10-PCS; principal; 2019-04-01)
PROC: 4A023N7 Measurement of Cardiac Sampling and Pressure, Left Heart, Percutaneous Approach (ICD-10-PCS; 2019-04-01)
PROC: B2111ZZ Fluoroscopy of Multiple Coronary Arteries using Low Osmolar Contrast (ICD-10-PCS; 2019-04-01)
PROC: B2151ZZ Fluoroscopy of Left Heart using Low Osmolar Contrast (ICD-10-PCS; 2019-04-01)
DX: I21.4 Non-ST elevation (NSTEMI) myocardial infarction (principal); Z68.42 Body mass index [BMI] 45.0-49.9, adult; E66.01 Morbid (severe) obesity due to excess calories; E11.9 Type 2 diabetes mellitus without complications; E78.5 Hyperlipidemia, unspecified; I10 Essential (primary) hypertension; E87.5 Hyperkalemia; J44.9 Chronic obstructive pulmonary disease, unspecified; F17.210 Nicotine dependence, cigarettes, uncomplicated; Z79.84 Long term (current) use of oral hypoglycemic drugs; Z79.899 Other long term (current) drug therapy
CPT/HCPCS: 36415; 36416; 80048; 80053; 80061; 84484; 85025; 85347; 92928; 92978; 93005; 93010; 93458; 93798; 94760; 99152; 99153; C1753; C1769; C1876; C1887; J0153; J1644; J2001; J2250; J3010

== ENCOUNTER 2023-10-13 19:52 | Inpatient (IN) | payer OTHER ==
[2023-10-13] MEDS ORDERED: Ondansetron ODT 4 MG TAB PO PRN (21:52)
[2023-10-13] MEDS ORDERED: Acetaminophen 650 MG Suppository PR PRN (21:52)
[2023-10-13] MEDS ORDERED: Acetaminophen 325 MG TAB PO PRN (21:52)
[2023-10-13] MEDS ORDERED: Dextrose 50% Abboject 50 ML SYRINGE SLOW IVP PRN (21:52)
[2023-10-13] MEDS ORDERED: Ondansetron PF 4 MG/2 ML Vial IVP PRN (21:52)
[2023-10-13] MEDS ORDERED: Dextrose 5% in Water 1,000 ML IV PRN (21:52)
[2023-10-13] MEDS ORDERED: Glucagon 1 MG/ML KIT IM PRN (21:52)
[2023-10-13 22:37] LABS: Anion Gap 15 mmol/L (10-20); BUN (Urea Nitrogen) 14 mg/dL (9.8-20.1); Calc. Creatinine Clearance 0 mL/min (70-130); Calcium 8.6 mg/dL (7.8-10.44); Carbon Dioxide 20 mmol/L (22-29); Chloride 103 mmol/L (98-107); Estimated GFR 31; Glucose 164 mg/dL (70-105); Magnesium 1.4 mg/dL (1.6-2.6); Sodium 135 mmol/L (136-145)
[2023-10-13 22:47] LABS: Hemoglobin A1c 6.1 % (4.0-6.0)
[2023-10-13] MEDS: Dextrose 10% in Water 1,000 ML IV SCH (23:31)
[2023-10-13 23:58] VITALS: BMI 44.4
[2023-10-14] MEDS: Potassium Chloride 20 MEQ TAB PO SCH ×2 (00:33→11:05)
[2023-10-14] MEDS: Magnesium Sulfate In Water 4 GM in Premix 1 BAG IVPB SCH (00:34)
[2023-10-14 04:46] LABS: #Eosinphils 0.2 thou/uL (0.0-0.7); #Neutrophils 5.7 thou/uL (1.40-6.50); %Basophils 0.2 % (0.0-1.0); %Lymphocytes 26.1 % (21.0-51.0); %Monocytes 10.8 % (0.0-10.0); %Neutrophils 60.6 % (42.0-75.0); Hematocrit 33.8 % (36.0-47.0); Mean Corpuscular HGB CONC 32.5 g/dL (32.0-36.0); Mean Corpuscular Hemoglobin 28.8 pg (27.0-31.0); Mean Corpuscular Volume 88.5 fl (78.0-98.0); Mean Platelet Volume 10.2 fL (7.4-10.4); Platelet Count 348 10x3/uL (130-400); Red Blood Cell (RBC) Count 3.82 mill/uL (4.20-5.40); White Blood Cell (WBC) Count 9.4 10x3/uL (4.8-10.8)
[2023-10-14 05:23] LABS: Anion Gap 13 mmol/L (10-20); BUN (Urea Nitrogen) 14 mg/dL (9.8-20.1); Calc. Creatinine Clearance 61 mL/min (70-130); Calcium 8.6 mg/dL (7.8-10.44); Carbon Dioxide 20 mmol/L (22-29); Chloride 106 mmol/L (98-107); Estimated GFR 33; Glucose 110 mg/dL (70-105); Magnesium 2.8 mg/dL (1.6-2.6); Potassium 3.1 mmol/L (3.5-5.1); Sodium 136 mmol/L (136-145)
[2023-10-14] MEDS: Famotidine 20 MG TAB PO SCH (09:01)
[2023-10-14] MEDS: Aspirin Chewable 81 MG TAB PO SCH (09:01)
[2023-10-14] MEDS: Lisinopril 5 MG TAB PO SCH (09:01)
[2023-10-14] MEDS: metFORMIN 500 MG TAB PO SCH (09:02)
[2023-10-14] MEDS ORDERED: hydrALAZINE 20 MG/ML VIAL SLOW IVP PRN (09:34)
[2023-10-14 13:01] LABS: Bacteria/HPF None Seen HPF (None Seen); Bilirubin Negative (Negative); Blood, Urine 1+ (Negative); Clarity Clear (Clear); Glucose, Urine (Dipstick) 500 mg/dL (Negative); Ketone, Urine Negative (Negative); Leukocyte Negative Leu/uL (Negative); Nitrite Negative (Negative); Protein, Urine (Dipstick) 100 mg/dL (Neg-Trace); RBC/HPF 0-3 HPF (0-3); Specific Gravity, Urine 1.013 (1.002-1.036); Squamous Epithelial 0-3 HPF (0-3); Urobilinogen Normal mg/dL (Less than 2); WBC/HPF 0-3 HPF (0-3)
[2023-10-14 13:05] LABS: Amphetamine Not Detected (NotDetected); Barbiturates Screen Not Detected (NotDetected); Benzodiazepine Screen Not Detected (NotDetected); Cocaine Metabolite Screen Not Detected (NotDetected); Methadone Not Detected (NotDetected); Methamphetamine Not Detected (NotDetected); Opiate Screen Not Detected (NotDetected); Oxycodone Screen Not Detected (NotDetected); Phencyclidine (PCP) Not Detected (NotDetected); THC/Cannabinoid Screen Not Detected (NotDetected); Tricyclic Screen Not Detected (NotDetected)
[2023-10-14] MEDS: cefTRIAXone\\ROCEPHIN 1 GM in Sodium Chloride 0.9% 100 ML IVPB SCH (16:51)
[2023-10-14] MEDS: HumaLOG 300 UNITS/3 ML VIAL SC PRN (18:31)
[2023-10-14] MEDS: Insulin Glargine 30 UNITS/0.3 ML VIAL SC SCH (21:37)
[2023-10-14] MEDS: Heparin 5,000 UNITS/ML VIAL SC SCH (21:39)
[2023-10-15 05:23] LABS: #Eosinphils 0.2 thou/uL (0.0-0.7); #Monocytes 0.9 thou/uL (0.11-0.59); #Neutrophils 4.5 thou/uL (1.40-6.50); %Basophils 0.1 % (0.0-1.0); %Monocytes 11.3 % (0.0-10.0); %Neutrophils 60.5 % (42.0-75.0); Hematocrit 33.6 % (36.0-47.0); Hemoglobin 10.8 g/dL (12.0-16.0); Mean Corpuscular HGB CONC 32.1 g/dL (32.0-36.0); Mean Corpuscular Hemoglobin 28.3 pg (27.0-31.0); Platelet Count 348 10x3/uL (130-400); RBC Distribution Width 14.9 % (11.5-14.5); Red Blood Cell (RBC) Count 3.82 mill/uL (4.20-5.40); White Blood Cell (WBC) Count 7.5 10x3/uL (4.8-10.8)
[2023-10-15 05:53] LABS: Anion Gap 9 mmol/L (10-20); BUN (Urea Nitrogen) 14 mg/dL (9.8-20.1); Calc. Creatinine Clearance 67 mL/min (70-130); Calcium 8.6 mg/dL (7.8-10.44); Carbon Dioxide 22 mmol/L (22-29); Chloride 109 mmol/L (98-107); Estimated GFR 36; Glucose 150 mg/dL (70-105); Magnesium 2.1 mg/dL (1.6-2.6); Potassium 3.7 mmol/L (3.5-5.1); Sodium 136 mmol/L (136-145)
[2023-10-15 11:38] VITALS: BP 163/75; TEMP 97.2
== END 2023-10-15 14:45 | disposition home or self-care (01) | DRG 638 ==
LOC: ERS 19:52 → 2SE 22:19 → OBSVTOIN 10-15 09:13
PROVIDERS: ADMIT Internal Medicine; ATTEND Internal Medicine
DX: E11.649 Type 2 diabetes mellitus with hypoglycemia without coma (principal); Z68.41 Body mass index [BMI] 40.0-44.9, adult; I12.9 Hypertensive chronic kidney disease with stage 1 through stage 4 chronic kidney disease, or unspecified chronic kidney disease; I25.10 Atherosclerotic heart disease of native coronary artery without angina pectoris; E78.5 Hyperlipidemia, unspecified; J44.9 Chronic obstructive pulmonary disease, unspecified; E11.22 Type 2 diabetes mellitus with diabetic chronic kidney disease; E83.42 Hypomagnesemia; E87.6 Hypokalemia; R82.71 Bacteriuria; E66.01 Morbid (severe) obesity due to excess calories; Z55.6 Problems related to health literacy; Z88.5 Allergy status to narcotic agent; Z79.4 Long term (current) use of insulin; Z79.82 Long term (current) use of aspirin; Z79.84 Long term (current) use of oral hypoglycemic drugs; Z98.891 History of uterine scar from previous surgery; N18.32 Chronic kidney disease, stage 3b
CPT/HCPCS: 36415; 36416; 80048; 80306; 81003; 81015; 83036; 83735; 84443; 85025; 87086; 96372; 96374; 96375; 99285; G0378; J0696; J1644; J1815; J3475; J3490

== ENCOUNTER 2024-08-08 00:07 | Inpatient (IN) | payer MEDICARE, OTHER ==
[2024-08-08 02:01] VITALS: BMI 42.5
[2024-08-08] MEDS ORDERED: Acetaminophen 325 MG TAB PO PRN (03:00)
[2024-08-08] MEDS ORDERED: Ondansetron PF 4 MG/2 ML Vial IVP PRN (03:00)
[2024-08-08] MEDS ORDERED: Dextrose 5% in Water 1,000 ML IV PRN (03:00)
[2024-08-08] MEDS ORDERED: Glucagon 1 MG/ML KIT IM PRN (03:00)
[2024-08-08] MEDS ORDERED: Insulin Lispro 100 UNIT/ML 10 ML VIAL SC PRN (03:00)
[2024-08-08] MEDS ORDERED: Dextrose 50% Abboject 50 ML SYRINGE SLOW IVP PRN (03:00)
[2024-08-08] MEDS ORDERED: Ondansetron ODT 4 MG TAB PO PRN (03:00)
[2024-08-08 04:37] LABS: #Basophils 0.03 10x3/uL (0.0-0.2); %Basophils 0.4 % (0.0-1.0); %Eosinophils 1.8 % (0.0-10.0); %Lymphocytes 28.1 % (21.0-51.0); %Monocytes 11.3 % (0.0-10.0); %Neutrophils 58.2 % (42.0-75.0); Hematocrit 37.7 % (36.0-47.0); Hemoglobin 11.9 g/dL (12.0-16.0); Mean Corpuscular HGB CONC 31.6 g/dL (32.0-36.0); Mean Corpuscular Hemoglobin 28.5 pg (27.0-31.0); Mean Corpuscular Volume 90.2 fL (78.0-98.0); Mean Platelet Volume 11.1 fL (7.4-10.4); Platelet Count 280 10x3/uL (130-400); RBC Distribution Width 14.3 % (11.5-14.5); Red Blood Cell (RBC) Count 4.18 mill/uL (4.20-5.40)
[2024-08-08 04:49] LABS: Hemoglobin A1c 8.2 % (4.0-6.0)
[2024-08-08 04:57] LABS: ALT (SGPT) 27 U/L (8-55); AST (SGOT) 12 U/L (5-34); Albumin 2.9 g/dL (3.5-5.0); Alkaline Phosphatase 85 U/L (40-110); Anion Gap 12 mmol/L (10-20); BUN (Urea Nitrogen) 31 mg/dL (9.8-20.1); Bilirubin, Total 0.3 mg/dL (0.2-1.2); Calc. Creatinine Clearance 56 mL/min (70-130); Calcium 8.9 mg/dL (7.8-10.44); Carbon Dioxide 21 mmol/L (22-29); Cardiac Risk 4.1 (Less than 4.5); Chloride 112 mmol/L (98-107); Cholesterol 150 mg/dl (< 200 Desired); Estimated GFR 31; Globulin 4.2 g/dL (2.4-3.5); Glucose 150 mg/dL (70-105); HDL Cholesterol 37 mg/dL (>60 Neg Risk); LDL Cholesterol, Calculated 93 mg/dL; Magnesium 1.8 mg/dL (1.6-2.6); Potassium 4.1 mmol/L (3.5-5.1); Protein, Total 7.1 g/dL (6.0-8.3); Sodium 141 mmol/L (136-145); Triglycerides 101 mg/dL (Less than 150)
[2024-08-08] MEDS: Lorazepam 2 MG/ML VIAL SLOW IVP SCH (09:14)
[2024-08-08] MEDS: Aspirin 81 mg Enteric Coated Tablet PO SCH (09:15)
[2024-08-08] MEDS: Nystatin 500,000 UNITS/5 ML UDCUP SSW SCH (13:30)
[2024-08-08] MEDS: Atorvastatin Calcium 40 MG TAB PO SCH (20:39)
[2024-08-08] MEDS: Enoxaparin 40 MG (0.4 mL) SYRINGE SC SCH (20:40)
[2024-08-08] MEDS: Insulin Glargine 30 UNITS/0.3 ML VIAL SC SCH (20:40)
[2024-08-09] MEDS: Lisinopril 5 MG TAB PO SCH (08:40)
[2024-08-09] MEDS ORDERED: Aspirin Chewable 81 MG TAB PO SCH (09:00)
[2024-08-09] MEDS: Amlodipine 10 MG TAB PO SCH (10:02)
[2024-08-10 04:56] LABS: #Basophils 0.03 10x3/uL (0.0-0.2); %Basophils 0.4 % (0.0-1.0); %Eosinophils 2.2 % (0.0-10.0); %Lymphocytes 25.3 % (21.0-51.0); %Monocytes 12.1 % (0.0-10.0); %Neutrophils 59.7 % (42.0-75.0); Hematocrit 36.3 % (36.0-47.0); Hemoglobin 11.6 g/dL (12.0-16.0); Mean Corpuscular Hemoglobin 29.1 pg (27.0-31.0); Mean Platelet Volume 10.6 fL (7.4-10.4); Platelet Count 272 10x3/uL (130-400); RBC Distribution Width 13.9 % (11.5-14.5); Red Blood Cell (RBC) Count 3.99 mill/uL (4.20-5.40)
[2024-08-10 05:20] LABS: Anion Gap 11 mmol/L (10-20); BUN (Urea Nitrogen) 29 mg/dL (9.8-20.1); Calc. Creatinine Clearance 62 mL/min (70-130); Calcium 8.7 mg/dL (7.8-10.44); Carbon Dioxide 19 mmol/L (22-29); Chloride 112 mmol/L (98-107); Estimated GFR 35; Glucose 104 mg/dL (70-105); Potassium 3.8 mmol/L (3.5-5.1); Sodium 138 mmol/L (136-145)
[2024-08-10] MEDS: Lisinopril 10 MG TAB PO SCH ×2 (09:46→15:26)
[2024-08-10] MEDS: Clopidogrel Bisulfate 75 MG TAB PO SCH (15:25)
[2024-08-10] MEDS ORDERED: Insulin Glargine 30 UNITS/0.3 ML VIAL SC SCH (21:00)
[2024-08-10] MEDS: Enoxaparin 40 MG (0.4 mL) SYRINGE SC SCH (21:36)
[2024-08-10] MEDS: Atorvastatin Calcium 20 MG TAB PO SCH (21:37)
[2024-08-11] MEDS: Lisinopril 20 MG TAB PO SCH (09:57)
[2024-08-11] MEDS: Clopidogrel Bisulfate 75 MG TAB PO SCH (09:58)
[2024-08-11] MEDS: Insulin Lispro 100 UNIT/ML 10 ML VIAL SC PRN (18:20)
[2024-08-11] MEDS: Atorvastatin Calcium 20 MG TAB PO SCH (21:24)
[2024-08-12 04:23] LABS: #Basophils 0.03 10x3/uL (0.0-0.2); %Basophils 0.4 % (0.0-1.0); %Eosinophils 2.4 % (0.0-10.0); %Lymphocytes 24.3 % (21.0-51.0); %Monocytes 13.5 % (0.0-10.0); %Neutrophils 59.1 % (42.0-75.0); Hematocrit 36.4 % (36.0-47.0); Hemoglobin 11.6 g/dL (12.0-16.0); Mean Corpuscular HGB CONC 31.9 g/dL (32.0-36.0); Mean Corpuscular Hemoglobin 28.9 pg (27.0-31.0); Mean Corpuscular Volume 90.8 fL (78.0-98.0); Mean Platelet Volume 10.8 fL (7.4-10.4); Platelet Count 259 10x3/uL (130-400); RBC Distribution Width 13.3 % (11.5-14.5); Red Blood Cell (RBC) Count 4.01 mill/uL (4.20-5.40)
[2024-08-12 04:44] LABS: Anion Gap 11 mmol/L (10-20); BUN (Urea Nitrogen) 31 mg/dL (9.8-20.1); Calc. Creatinine Clearance 59 mL/min (70-130); Calcium 9.1 mg/dL (7.8-10.44); Carbon Dioxide 21 mmol/L (22-29); Chloride 113 mmol/L (98-107); Estimated GFR 33; Glucose 136 mg/dL (70-105); Sodium 141 mmol/L (136-145)
[2024-08-12] MEDS: NIFEdipine XL 60 MG ER.TAB PO SCH (10:33)
[2024-08-12 16:02] VITALS: BP 115/58; TEMP 98.1
[2024-08-12] MEDS ORDERED: Atorvastatin Calcium 40 MG TAB PO SCH (21:00)
== END 2024-08-12 20:10 | disposition home or self-care (01) | DRG 65 ==
LOC: 2SE 01:46 → OBSVTOIN 10:56
PROVIDERS: ADMIT Student in an Organized Health Care Education/Training Program; ATTEND Internal Medicine
DX: I63.81 Other cerebral infarction due to occlusion or stenosis of small artery (principal); G81.93 Hemiplegia, unspecified affecting right nondominant side; Z68.41 Body mass index [BMI] 40.0-44.9, adult; E11.22 Type 2 diabetes mellitus with diabetic chronic kidney disease; N18.30 Chronic kidney disease, stage 3 unspecified; I12.9 Hypertensive chronic kidney disease with stage 1 through stage 4 chronic kidney disease, or unspecified chronic kidney disease; E66.01 Morbid (severe) obesity due to excess calories; R29.705 NIHSS score 5; F17.210 Nicotine dependence, cigarettes, uncomplicated; J44.9 Chronic obstructive pulmonary disease, unspecified; E78.5 Hyperlipidemia, unspecified; Z88.5 Allergy status to narcotic agent; Z79.82 Long term (current) use of aspirin; Z79.02 Long term (current) use of antithrombotics/antiplatelets; Z79.4 Long term (current) use of insulin
CPT/HCPCS: 36415; 36416; 70551; 80048; 80053; 80061; 83036; 83735; 84443; 85025; 93306; 93880; 96374; G0378; J1650; J1815; J2060